=== PATIENT | male | born 1985 | race Caucasian/White ===

== ENCOUNTER 2025-02-13 00:21 | Emergency (ER) | payer OTHER ==
[2025-02-13 00:33] VITALS: RESP 18; TEMP 97.9
--- NOTE | 2025-02-13 02:33 | US ---
EXAM: US Scrotum CLINICAL HISTORY: US Reason: scrotal swelling TECHNIQUE: Real-time ultrasound of the scrotum with color Doppler and image documentation. COMPARISON: No relevant prior studies available. FINDINGS: Right testicle: The right testicle measures 3.2 x 2.7 x 3.9 cm, 17.8 mL. No torsion. Left testicle: The left testicle measures 4 x 2.6 x 2.7 cm, 14.7 mL. No torsion. Epididymides: The right epididymal head measures 1 x 1.1 x 1.1 cm. The left epididymal head measures 9 x 8 x 7 mL. Scrotum: Unremarkable. No hydrocele or varicocele. Soft tissues: There is skin thickening of the scrotum measuring up to 2.5 cm thick. No abscess or subcutaneous emphysema is identified. IMPRESSION: 1. There is skin thickening of the scrotum measuring up to 2.5 cm thick. No abscess or subcutaneous emphysema is identified. 2. No evidence of torsion.
[2025-02-13 02:43] VITALS: BP 150/86; PULSE 100
--- NOTE | 2025-02-13 03:27 | ED ---
General Adult HPI - General Chief complaint: Urogenital Stated complaint: Testicles are swollen, pain in head Time Seen by Provider: 02/13/25 00:46 Source: patient Mode of arrival: ambulatory Limitations: no limitations - History of Present Illness Initial comments: This patient is a 39-year-old man who presents evaluation of swelling to the scrotum. The patient states that this has been going on for some time now. He states he became concerned because he is starting to date a woman and is alarmed at the degree of swelling in his scrotum. He is denying guy testicular pain. No dysuria or urethral discharge. No fever or chills. No change in urination or bowel movements. Patient is also complaining of headache he is not able to characterize the headache well. He does state that it is one of the worst headaches that he has had. Patient does also describe what sounds like some delusional thought content with some paranoia evident. He denies depressed mood or suicidal ideation. -: month(s) Radiation: non-radiation Severity scale (1-10): 0 Quality: dull Consistency: constant Improves with: none Worsens with: none Associated Symptoms: denies other symptoms Treatments Prior to Arrival: none - Related Data Home Medications Medication Instructions Recorded Confirmed Gabapentin [Neurontin] 800 mg PO QID 02/17/25 02/17/25 buprenorphine HCL [Subutex] 8 mg SL BID 02/17/25 02/17/25 Previous Rx's Medication Instructions Recorded Citalopram Hydrobromide [CeleXA] 10 mg PO DAILY 30 Days #30 tab 02/21/25 Nicotine 14Mg/24Hr Patch [Habitrol] 1 patch TRANSDERM DAILY #0 patch 02/21/25 Paliperidone [Invega] 6 mg PO HS 30 Days #30 tab 02/21/25 Allergies Allergy/AdvReac Type Severity Reaction Status Date / Time No Known Allergies Allergy Verified 02/17/25 14:48 Review of Systems ROS Statement: Those systems with pertinent positive or pertinent negative responses have been documented in the HPI. ROS Other: All systems not noted in ROS Statement are negative. Constitutional: Denies: fever, chills, weakness Eyes: Denies: eye pain, vision change ENT: Denies: ear pain, hearing loss Respiratory: Denies: cough, dyspnea Cardiovascular: Denies: chest pain, palpitations, syncope Gastrointestinal: Denies: abdominal pain, nausea, vomiting, diarrhea, constipation Genitourinary: Reports: other (Scrotal swelling). Denies: urgency, dysuria, frequency, testicular pain Musculoskeletal: Denies: back pain, arthralgia Skin: Denies: rash Neurological: Reports: headache, confusion. Denies: weakness, numbness Psychiatric: Reports: anxiety. Denies: homicidal thoughts, suicidal thoughts Past Medical History Past Medical History: No Reported History History of Any Multi-Drug Resistant Organisms: None Reported Past Surgical History: Cholecystectomy Past Psychological History: Anxiety, Depression Smoking Status: Vaper Past Alcohol Use History: None Reported Past Drug Use History: None Reported General Exam Limitations: no limitations General appearance: alert, in no apparent distress Head exam: Present: atraumatic, normocephalic Eye exam: Present: normal appearance. Absent: scleral icterus, conjunctival injection ENT exam: Present: normal oropharynx Neck exam: Present: normal inspection, full ROM. Absent: tenderness Respiratory exam: Present: normal lung sounds bilaterally. Absent: respiratory distress, wheezes, rales, rhonchi, stridor, accessory muscle use Cardiovascular Exam: Present: regular rate, normal rhythm, normal heart sounds. Absent: systolic murmur, diastolic murmur, rubs, gallop GI/Abdominal exam: Present: soft. Absent: distended, tenderness, guarding, rebound, rigid, mass exam: Present: scrotal swelling, vertical testicular lie, other (There does appear to be scrotal edema. The testicles themselves seem normal in size with no tenderness.). Absent: testicular tenderness, urethral discharge Extremities exam: Present: normal inspection, normal capillary refill. Absent: pedal edema, calf tenderness Back exam: Present: normal inspection. Absent: CVA tenderness (R), CVA tenderness (L) Neurological exam: Present: alert, CN II-XII intact. Absent: motor sensory deficit Psychiatric exam: Present: anxious, manic. Absent: depressed, agitated, homicidal ideation, suicidal ideation Skin exam: Present: warm, dry, intact, normal color. Absent: rash Course Vital Signs 02/13/25 02/13/25 00:28 02:27 Temperature 97.9 F Pulse Rate 104 H 100 Respiratory 18 18 Rate Blood Pressure 151/97 150/86 O2 Sat by Pulse 97 97 Oximetry Medical Decision Making - Medical Decision Making The patient had CT scan of the brain that I interpreted as negative for acute intracranial hemorrhage, negative for mass effect or midline shift The patient had ultrasound of the scrotum that I interpreted as negative for evidence of torsion. Was pt. sent in by a medical professional or institution (, PA, TILE SETTER SUPERVISOR, urgent care, hospital, or [facility]...) When possible be specific @ -[No] Did you speak to anyone other than the patient for history (EMS, parent, family, police, friend...)? What history was obtained from this source @ -[No] Did you review nursing and triage notes (agree or disagree)? Why? @ -[I reviewed and agree with nursing and triage notes] Were old charts reviewed (outside hosp., previous admission, EMS record, old EKG, old radiological studies, urgent care reports/EKG's, [facility] records)? Report findings @ -[No old charts were reviewed] Differential Diagnosis (chest pain, altered mental status, abdominal pain women, abdominal pain men, vaginal bleeding, weakness, fever, dyspnea, syncope, headache, dizziness, GI bleed, back pain, seizure, CVA, palpatations, mental health, musculoskeletal)? @ -[Differential Mental Health Depression, anxiety, bipolar, psychosis, schizophrenia, borderline personality, situational depression, adjustment disorder, behavioral disorder, brain tumor, malingering, substance abuse, encephalopathy, medication reaction, dementia, hypothyroidism, degenerative neurologic disorder, lupus.... This is not meant to be all-inclusive list Differential Headache: Migraine, tension, cluster, carbon monoxide, central venous thrombosis, pension karma temporal arteritis, acute closure glaucoma, intercranial hemorrhage, mastoiditis, sinusitis, head injury, this is not meant to be an all-inclusive list. Differential Abdominal Pain Men: Appendicitis, cholecystitis, diverticulosis, ischemic bowel, pancreatitis, hepatitis, UTI, gastroenteritis, AAA, incarcerated hernia, bowel obstruction, constipation, inflammatory bowel, hepatitis, peptic ulcer disease, splenic infarction, perforated viscus, testicular torsion, this is not meant to be an all-inclusive list EKG interpreted by me (3pts min.). @ -[As above] X-rays interpreted by me (1pt min.). @ -[None done] CT interpreted by me (1pt min.). @ -[I interpreted as above U/S interpreted by me (1pt. min.). @ -[I interpreted as above What testing was considered but not performed or refused? (CT, X-rays, U/S, labs)? Why? @ -[None] What meds were considered but not given or refused? Why? @ -[None] Did you discuss the management of the patient with other professionals (professionals i.e. , PA, TILE SETTER SUPERVISOR, lab, RT, psych nurse, marriage and family social worker, information technology professor, teacher, deputy probation officer, case preparer and liner)? Give summary @ -[No] Was smoking cessation discussed for >3mins.? @ -[No] Was critical care preformed (if so, how long)? @ -[No] Were there social determinants of health that impacted care today? How? (Homelessness, low income, unemployed, alcoholism, drug addiction, transportation, low edu. Level, literacy, decrease access to med. care, care home, rehab)? @ -[No] Was there de-escalation of care discussed even if they declined (Discuss DNR or withdrawal of care, Hospice)? DNR status @ -[No] What co-morbidities impacted this encounter? (DM, HTN, Smoking, COPD, CAD, Cancer, CVA, ARF, Chemo, Hep., AIDS, mental health diagnosis, sleep apnea, morbid obesity)? @ -[None] Was patient admitted / discharged? Hospital course, mention meds given and route, prescriptions, significant lab abnormalities, going to OR and other pertinent info. @ -Patient is a 39-year-old man here with multiple complaints. In relation to the scrotal edema. There does not appear to be any evidence of torsion. The patient also is not manifesting discharge or tenderness which would be consistent with STI. The patient does have edema of the scrotum and we will have him follow with urology in relation to this problem. In relation to the headache. CT scan is obtained as the patient is not a fully reliable exam given the underlying mental health issue. There is no evidence of subarachnoid hemorrhage. No evidence of mass effect. I did offer to have the patient seen by EPS in relation to some of the delusional thought content but the patient is declining. He is not describing any suicidal or homicidal ideation no frankly admittable delusions. Recommended follow-up as outpatient Undiagnosed new problem with uncertain prognosis? @ -[No] Drug Therapy requiring intensive monitoring for toxicity (Heparin, Nitro, Insulin, Cardizem)? @ -[No] Were any procedures done? @ -[No] Diagnosis/symptom? @ -[default] Acute, or Chronic, or Acute on Chronic? @ -[Chronic scrotal edema Acute headache Mild psychosis Uncomplicated (without systemic symptoms) or Complicated (systemic symptoms)? @ -[Uncomplicated Side effects of treatment? @ -[No] Exacerbation, Progression, or Severe Exacerbation? @ -[No] Poses a threat to life or bodily function? How? (Chest pain, [place], [place], pneumonia, PE, COPD, DKA, ARF, appy, cholecystitis, CVA, Diverticulitis, Homicidal, Suicidal, threat to staff... and all critical care pts) @ -[No] All treatments are based on ideal body weight as in ED triage Disposition Clinical Impression: Edema of scrotum Disposition: HOME SELF-CARE Condition: Fair Instructions (If sedation given, give patient instructions): Testicle Pain (ED) Is patient prescribed a controlled substance at d/c from ED?: No Referrals: Nils Acuna MD [Primary Care Provider] - 1-2 days Blake Jackson MD [STAFF PHYSICIAN] - 1-2 days
--- NOTE | 2025-02-13 03:33 | CT ---
EXAM: CT Head Without Intravenous Contrast CLINICAL HISTORY: CT Reason: altered mental status TECHNIQUE: Axial computed tomography images of the head/brain without intravenous contrast. CTDI is 49.2 mGy and DLP is 1465.4 mGy-cm. This CT exam was performed using one or more of the following dose reduction techniques: automated exposure control, adjustment of the mA and/or kV according to patient size, and/or use of iterative reconstruction technique. COMPARISON: No relevant prior studies available. FINDINGS: Brain: Unremarkable. No hemorrhage. No significant white matter disease. No edema. Ventricles: Unremarkable. No ventriculomegaly. Bones/joints: Unremarkable. No acute fracture. Soft tissues: Unremarkable. Sinuses: Unremarkable as visualized. No acute sinusitis. Mastoid air cells: Unremarkable as visualized. No mastoid effusion. IMPRESSION: Normal head/brain CT.
[2025-02-13] MEDS: IBUPROFEN 400 MG TAB PO STA (04:12)
== END 2025-02-13 05:01 | disposition home or self-care (01) ==
LOC: EC 00:21
DX: N50.89 Other specified disorders of the male genital organs (principal); F17.290 Nicotine dependence, other tobacco product, uncomplicated
CPT/HCPCS: 70450; 76870; 82075; 93975; 99284

== ENCOUNTER 2025-02-17 11:40 | Inpatient (IN) | payer MEDICAID, OTHER ==
--- NOTE | 2025-02-17 12:39 | ED ---
General Adult HPI - General Chief complaint: Psychiatric Symptoms Stated complaint: Petition Time Seen by Provider: 02/17/25 11:46 Source: patient Mode of arrival: ambulatory Limitations: no limitations - History of Present Illness Initial comments: Dictation was produced using [employer] dictation software. please excuse any grammatical, word or spelling errors. Chief Complaint: 39 will discuss I has not seen Delmy has been seen here and [id number] male presents with psychiatric evaluation History of Present Illness: Patient patient 39-year-old male presents emergency department for psychiatric evaluation. Patient allegedly was behaving psychotically. Patient allegedly was at a boat yard and took another person's boat without permission came back. Patient has been saying multiple psychotic things according to EMS with paranoid behavior. Patient a poor historian due to mental status. The ROS documented in this emergency department record has been reviewed and confirmed by me. Those systems with pertinent positive or negative responses have been documented in the HPI. All other systems are other negative and/or noncontributory. - Related Data Home Medications Medication Instructions Recorded Confirmed Citalopram Hydrobromide [CeleXA] 10 mg PO DAILY 02/17/25 02/17/25 Gabapentin [Neurontin] 800 mg PO QID 02/17/25 02/17/25 LORazepam [Ativan] 0.5 mg PO TID PRN 02/17/25 02/17/25 Naloxone HCl [Narcan] 4 mg NASAL DIRECTED PRN 02/17/25 02/17/25 buprenorphine HCL [Subutex] 8 mg SL BID 02/17/25 02/17/25 hydrOXYzine HCL [Atarax] 10 mg PO DAILY 02/17/25 02/17/25 Allergies Allergy/AdvReac Type Severity Reaction Status Date / Time No Known Allergies Allergy Verified 02/17/25 14:48 Review of Systems ROS Statement: Those systems with pertinent positive or pertinent negative responses have been documented in the HPI. ROS Other: All systems not noted in ROS Statement are negative. Past Medical History Past Medical History: No Reported History History of Any Multi-Drug Resistant Organisms: None Reported Past Surgical History: Cholecystectomy Past Psychological History: Anxiety, Bipolar, Depression Smoking Status: Vaper Past Alcohol Use History: None Reported Past Drug Use History: None Reported - Past Family History Mother History Unknown: Yes General Exam - General Exam Comments Initial Comments: General: Well-appearing, nontoxic, no acute distress. Head: Normocephalic, atraumatic Eyes: PERRLA, EOMI ENT: Airway patent Chest: Nonlabored breathing Skin: No visual rash, normal skin tone Neuro: Alert and oriented 3 Musculoskeletal: No gross abnormalities Psych: Psychotic Limitations: no limitations Course Vital Signs 02/17/25 02/17/25 02/18/25 11:52 20:00 04:05 Temperature 98.3 F 97.9 F Pulse Rate 119 H 87 92 Respiratory 20 17 16 Rate Blood Pressure 116/81 100/64 103/65 O2 Sat by Pulse 97 97 95 Oximetry EKG Findings - EKG Comments: EKG Findings:: My EKG interpretation: Ventricular rate 90, sinus rhythm, CT 157, QRS 89, QTc 419. No CT prolongation, no QTC prolongation, no ST or T-wave changes noted. Overall, this EKG is unremarkable Procedures - Restraint - Face to Face Restraint Occurrence 1 Patient's Immediate Situation: Endangers self safety, Endangers others' safety, Endangers staff safety Patient's Reaction to the Intervention: Angry Need to Continue or Terminate Restraint or Seclusion: Continue Face to Face Eval of Restraint Date: 02/17/25 Face to Face Eval of Restraint Time: 12:50 Medical Decision Making - Medical Decision Making Was pt. sent in by a medical professional or institution (MARGARET Banks, SALES STORE CHECKER, urgent care, hospital, or chcf...) When possible be specific @ -No Did you speak to anyone other than the patient for history (EMS, parent, family, police, friend...)? What history was obtained from this source @ -No Did you review nursing and triage notes (agree or disagree)? Why? @ -I reviewed and agree with nursing and triage notes Were old charts reviewed (outside hosp., previous admission, EMS record, old EKG, old radiological studies, urgent care reports/EKG's, [facility] records)? Report findings @ -No old charts were reviewed Differential Diagnosis (chest pain, altered mental status, abdominal pain women, abdominal pain men, vaginal bleeding, musculoskeletal, weakness, fever, dyspnea, syncope, headache, dizziness, GI bleed, back pain, seizure, CVA, palpatations, mental health)? @ -Differential Mental Health: Depression, anxiety, bipolar, psychosis, schizophrenia, borderline personality, situational depression, adjustment disorder, behavioral disorder, brain tumor, malingering, substance abuse, encephalopathy, medication reaction, dementia, hypothyroidism, degenerative neurologic disorder, lupus.... This is not meant to be all-inclusive list EKG interpreted by me (3pts min.). @ -See above X-rays interpreted by me (1pt min.). @ -None done CT interpreted by me (1pt min.). @ -None done U/S interpreted by me (1pt. min.). @ -None done What testing was considered but not performed or refused? (CT, X-rays, U/S, labs)? Why? @ -None What meds were considered but not given or refused? Why? @ -None Was smoking cessation discussed for >3mins.? @ -No Were there social determinants of health that impacted care today? How? (Homelessness, low income, unemployed, alcoholism, drug addiction, transportation, low edu. Level, literacy, decrease access to med. care, penitentiary, rehab)? @ -No Was there de-escalation of care discussed even if they declined (Discuss DNR or withdrawal of care, Hospice)? DNR status @ -No What co-morbidities impacted this encounter? (DM, HTN, Smoking, COPD, CAD, Cancer, CVA, ARF, Chemo, Hep., AIDS, mental health diagnosis, sleep apnea, morbid obesity)? @ -None Was patient admitted / discharged? Hospital course, mention meds given and route, prescriptions, significant lab abnormalities, going to OR and other pertinent info. @ -39-year-old male presents with psychiatric evaluation. Patient psychotic on arrival. Vital signs stable. Labs unremarkable. Patient was given sedated medications. Will be medically clear when sedation wears off. Patient care signed out to Dr. Frank At 4:00 PM Patient abided by EPS and admitted to 3 W. Did you discuss the management of the patient with other professionals (nolvia urena i.e. , PA, SALES STORE CHECKER, lab, RT, psych nurse, group social worker, product controller, teacher, transit police officer, case mgr)? Give summary @ - Was critical care preformed (if so, how long)? @ -No Undiagnosed new problem with uncertain prognosis? @ -No Drug Therapy requiring intensive monitoring for toxicity (Heparin, Nitro, Insulin, Cardizem)? @ -No Were any procedures done? @ -No Diagnosis/symptom? Acute, or Chronic, or Acute on Chronic? Uncomplicated (without systemic symptoms) or Complicated (systemic symptoms)? @ -Acute psychosis Side effects of treatment? @ -No Exacerbation, Progression, or Severe Exacerbation? @ -No Poses a threat to life or bodily function? How? (Chest pain, USA, [place], pneumonia, PE, COPD, DKA, ARF, appy, cholecystitis, CVA, Diverticulitis, Homicidal, Suicidal, threat to staff... and all critical care pts) @ -yes - Lab Data Result diagrams: 02/17/25 13:20 02/17/25 13:20 Lab Results 02/17/25 02/17/25 02/17/25 Range/Units 13:20 13:20 13:20 WBC 5.89 (4.50-10.00) 10*3/uL RBC 4.28 L (4.40-5.60) 10*6/uL Hgb 12.6 L (13.0-17.0) g/dL Hct 35.8 L (39.6-50.0) % MCV 83.6 (80.0-97.0) fL MCH 29.4 (27.0-32.0) pg MCHC 35.2 (32.0-37.0) g/dL Plt Count 261 (140-440) 10*3/uL MPV 10.4 (9.5-12.2) fL Immature Gran % (Auto) 0.2 % Neutrophils % 61.6 % Lymphocytes % 21.6 % Monocytes % 12.7 % Eosinophils % 3.4 % Basophils % 0.5 % Immature Gran # 0.01 (0.00-0.04) 10*3/uL Neutrophils # 3.63 (1.80-7.70) 10*3/uL Lymphocytes # 1.27 (0.90-5.00) 10*3/uL Monocytes # 0.75 (0.20-1.00) 10*3/uL Eosinophils # 0.20 (0.04-0.35) 10*3/uL Basophils # 0.03 (0.00-0.10) 10*3/uL Sodium 138 (137-145) mmol/L Potassium 4.1 (3.5-5.1) mmol/L Chloride 102 (98-107) mmol/L Carbon Dioxide 26 (22-30) mmol/L Anion Gap 10 mmol/L BUN 26 H (9-20) mg/dL Creatinine 1.01 (0.66-1.25) mg/dL Est GFR (CKD-EPI)AfAm >90 (>60 ml/min/1.73 sqM) Est GFR (CKD-EPI)NonAf >90 (>60 ml/min/1.73 sqM) Glucose 92 (74-99) mg/dL Estimated Ave Glu mg/dL 111 mg/dL Hemoglobin A1c 5.5 (<=6.0) % Calcium 9.1 (8.4-10.2) mg/dL Total Bilirubin 1.0 (0.2-1.3) mg/dL AST 87 H (17-59) U/L ALT 45 (4-49) U/L Alkaline Phosphatase 88 (38-126) U/L Total Protein 7.2 (6.3-8.2) g/dL Albumin 4.6 (3.5-5.0) g/dL TSH (0.465-4.680) mIU/L Salicylates <1.0 mg/dL Acetaminophen <10.0 ug/mL Serum Alcohol <10 mg/dL Influenza Type A (PCR) (Not Detectd) Influenza Type B (PCR) (Not Detectd) RSV (PCR) (Not Detectd) SARS-CoV-2 (PCR) (Not Detectd) 02/17/25 02/18/25 Range/Units 13:20 01:45 WBC (4.50-10.00) 10*3/uL RBC (4.40-5.60) 10*6/uL Hgb (13.0-17.0) g/dL Hct (39.6-50.0) % MCV (80.0-97.0) fL MCH (27.0-32.0) pg MCHC (32.0-37.0) g/dL Plt Count (140-440) 10*3/uL MPV (9.5-12.2) fL Immature Gran % (Auto) % Neutrophils % % Lymphocytes % % Monocytes % % Eosinophils % % Basophils % % Immature Gran # (0.00-0.04) 10*3/uL Neutrophils # (1.80-7.70) 10*3/uL Lymphocytes # (0.90-5.00) 10*3/uL Monocytes # (0.20-1.00) 10*3/uL Eosinophils # (0.04-0.35) 10*3/uL Basophils # (0.00-0.10) 10*3/uL Sodium (137-145) mmol/L Potassium (3.5-5.1) mmol/L Chloride (98-107) mmol/L Carbon Dioxide (22-30) mmol/L Anion Gap mmol/L BUN (9-20) mg/dL Creatinine (0.66-1.25) mg/dL Est GFR (CKD-EPI)AfAm (>60 ml/min/1.73 sqM) Est GFR (CKD-EPI)NonAf (>60 ml/min/1.73 sqM) Glucose (74-99) mg/dL Estimated Ave Glu mg/dL mg/dL Hemoglobin A1c (<=6.0) % Calcium (8.4-10.2) mg/dL Total Bilirubin (0.2-1.3) mg/dL AST (17-59) U/L ALT (4-49) U/L Alkaline Phosphatase (38-126) U/L Total Protein (6.3-8.2) g/dL Albumin (3.5-5.0) g/dL TSH 2.390 (0.465-4.680) mIU/L Salicylates mg/dL Acetaminophen ug/mL Serum Alcohol mg/dL Influenza Type A (PCR) Not Detected (Not Detectd) Influenza Type B (PCR) Not Detected (Not Detectd) RSV (PCR) Not Detected (Not Detectd) SARS-CoV-2 (PCR) Not Detected (Not Detectd) Disposition Clinical Impression: Psychosis Disposition: TRANSFER TO PSYCH HOSP/UNIT
[2025-02-17] MEDS: diphenhydrAMINE 50 MG/ML 1 ML VIAL IM STA (12:52)
[2025-02-17] MEDS: LORazepam 1 MG/0.5 ML VIAL IM STA (12:52)
[2025-02-17] MEDS: HALOPERIDOL LACTATE 5 MG/ML 1 ML VIAL IM STA (12:53)
[2025-02-17 13:33] LABS: Basophils # (A) 0.03 10*3/uL (0.00-0.10); Basophils % (A) 0.5 %; Eosinophils # (A) 0.20 10*3/uL (0.04-0.35); Eosinophils % (A) 3.4 %; HCT 35.8 % (39.6-50.0); HGB 12.6 g/dL (13.0-17.0); Lymphocytes # (A) 1.27 10*3/uL (0.90-5.00); Lymphocytes % (A) 21.6 %; MCH 29.4 pg (27.0-32.0); MCHC 35.2 g/dL (32.0-37.0); MCV 83.6 fL (80.0-97.0); Monocytes # (A) 0.75 10*3/uL (0.20-1.00); Monocytes % (A) 12.7 %; Neutrophils # (A) 3.63 10*3/uL (1.80-7.70); Neutrophils % (A) 61.6 %; Platelet Count 261 10*3/uL (140-440); RBC 4.28 10*6/uL (4.40-5.60); RDW 12.0 % (11.5-14.5); WBC 5.89 10*3/uL (4.50-10.00)
[2025-02-17 13:42] LABS: ALT 45 U/L (4-49); AST 87 U/L (17-59); Acetaminophen <10.0 ug/mL; African American GFR (CKD) >90 (>60 ml/min/1.73 sqM); Albumin 4.6 g/dL (3.5-5.0); Alkaline Phosphatase 88 U/L (38-126); Anion Gap 10 mmol/L; Blood Urea Nitrogen 26 mg/dL (9-20); Calcium 9.1 mg/dL (8.4-10.2); Carbon Dioxide 26 mmol/L (22-30); Chloride 102 mmol/L (98-107); Glucose 92 mg/dL (74-99); Non-African American GFR(CKD) >90 (>60 ml/min/1.73 sqM); Potassium 4.1 mmol/L (3.5-5.1); Salicylate <1.0 mg/dL; Sodium 138 mmol/L (137-145); Total Protein 7.2 g/dL (6.3-8.2)
[2025-02-18 02:57] LABS: RSV Not Detected (Not Detectd)
[2025-02-18] MEDS ORDERED: MAGNESIUM HYDROXIDE 2,400 MG/30 ML CUP PO PRN (03:45)
[2025-02-18] MEDS ORDERED: ACETAMINOPHEN TAB 325 MG TAB PO PRN (03:45)
[2025-02-18] MEDS ORDERED: HALOPERIDOL LACTATE 5 MG/ML 1 ML VIAL IM PRN (03:45)
[2025-02-18] MEDS ORDERED: MAG HYDROX/AL HYDROX/SIMETH 355 ML BOTTLE PO PRN (03:45)
[2025-02-18 04:54] LABS: Bilirubin,Urine Negative (Negative); Blood,Urine Negative (Negative); Color,Urine Yellow; Glucose,Urine (UA) Negative (Negative); Ketones,Urine 2+ (Negative); Leukocyte Esterase,Urine Negative (Negative); Nitrite,Urine Negative (Negative); PH, Urine 6.0 (5.0-8.0); Protein,Urine Trace (Negative); Specific Gravity,Urine 1.036 (1.001-1.035); Urobilinogen,Urine 2.0 mg/dL (<2.0)
[2025-02-18 05:16] LABS: Barbiturate Screen,Urine Not Detected (NotDetected); Benzodiazepines Screen,Urine Detected (NotDetected); Opiate Screen,Urine Not Detected (NotDetected); Oxycodone Screen, Urine Not Detected (NotDetected); Phencyclidine Screen,Urine Not Detected (NotDetected); Tricyclic Antidepressant,Urine Not Detected (NotDetected); Urn Cannabinoid Scrn Not Detected (NotDetected)
[2025-02-18] MEDS: NICOTINE 14MG/24HR PATCH TRANSDERM SCH (08:59)
[2025-02-18] MEDS: IBUPROFEN 600 MG TAB PO PRN (08:59)
[2025-02-18] MEDS: LORazepam 1 MG TAB PO PRN (08:59)
[2025-02-18] MEDS: BUPRENORPHINE-NALOX 8-2 MG TAB 1 EACH TAB.SUBL SL SCH (10:56)
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
[2025-02-18] MEDS: GABAPENTIN 400 MG CAP PO SCH (17:56)
[2025-02-18] MEDS: PALIPERIDONE 6 MG TAB.ER.24 PO SCH (20:43)
[2025-02-18] MEDS ORDERED: NON FORMULARY DRUG (Buprenorphine Hcl [Subutex] 8 MG Tab.Subl) SL SCH (21:00)
--- NOTE | 2025-02-19 01:05 | CONS ---
CONSULTATION CHIEF COMPLAINT: Acute psychosis. HISTORY OF PRESENT ILLNESS: This 39-year-old gentleman apparently was brought to the emergency room after he was exhibiting from very bizarre and irrational behavior. He is admitted with an episode of acute psychosis. He has had mental health issues in the past. He was last seen in the office just recently. REVIEW OF SYSTEMS: Not obtainable. At the present time, he is asleep and fairly groggy and difficult to arouse. Past medical history, family history, personal and social histories, reveal he is not allergic to any medication. Lately, he has been on Celexa 10 mg once a day, Ativan 0.5 t.i.d. p.r.n., hydroxyzine 10 mg once a day, gabapentin 800 mg 4 times a day, and he has been on Suboxone. PHYSICAL EXAMINATION: VITAL SIGNS: Blood pressure 110/80 with a pulse 76, respirations of 26, and he is afebrile. GENERAL: He appeared to be well developed, well nourished. He is sleepy. HEAD, EARS, EYES, NOSE, MOUTH AND THROAT: Otherwise normal. CHEST: Clear. CARDIAC: Reveals sinus rhythm. ABDOMEN: Soft, nontender. EXTREMITIES: Normal. IMPRESSION: 1. Acute psychosis. 2. History of depression. 3. History of other mental health issues. RECOMMENDATIONS: None. Thank you respectfully. MMODL / IJN: [id number] /
[2025-02-19] MEDS: CITALOPRAM HYDROBROMIDE 10 MG TAB PO SCH (09:34)
--- NOTE | 2025-02-19 12:46 | P.PN ---
Progress Note - Text Progress Note Date: 02/19/25 Interval History: Patient was seen laying in bed and was directable and agreeable to speak with scientific technical writer in the room. He did receive as needed Haldol/Ativan yesterday for agitation. He was adherent with his Invega overnight, expressing no concerns overall today other than a blister that was recently popped on his left foot. Patient states that the pain in his left foot prevents him from walking and he was encouraged to take as needed Motrin or Tylenol for this. Patient states he is unaware as to why he is here however he plans on following up with outpatient once discharged. He states he plans on possibly returning with his friend upon discharge. At this time patient denies any suicidal or homicidal ideations, intent or plan. Patient denies any auditory, visual hallucinations and denies any paranoia or delusions. Patient denies any side effects from the medications and has been compliant with meds. Mental Status Exam: General Appearance: Patient appears to be stated age is alert, directable, and cooperative. Behavior: Patient is calmly laying without any agitated behavior. Speech: Patient's speech is fluent and nonpressured. Mood/Affect: Mood is improving mildly, affect is congruent and constricted. Suicidality/Homicidality: Patient denies having any suicidal or homicidal ideation intent or plan. Perceptions: Patient denies any visual hallucinations and denies any auditory hallucinations Though content/process: There is no evidence of any delusional thought content and thought process is linear and goal-directed. Memory and concentration: AOX3, grossly intact for the purposes of this session Judgment and insight: Improving mildly Assessment Psychosis, unspecified Rule out schizoaffective disorder bipolar type versus substance-induced psychosis Opiate use disorder in sustained remission Nicotine dependence Plan: -Patient continues to meet criteria for inpatient psychiatric admission for symptom stabilization and safety. Patient has not signed adult voluntary form and medication consent and was placed in patient's chart. -Medications: Continue Invega 6 mg at bedtime for psychosis, Celexa 10 mg daily for depression -When necessary Ativan and Haldol for agitation/aggression. -Labs: Reviewed -NRT - nicotine patch -SW on board for discharge planning. Encouraged the patient to participate in milieu. Anticipate discharge tentatively on Monday
[2025-02-20 09:37] VITALS: RESP 16
--- NOTE | 2025-02-20 12:38 | P.PN ---
Progress Note - Text Progress Note Date: 02/20/25 Interval History: Patient was seen laying in bed and was directable and agreeable to speak with commercial loan underwriter in the room. Patient deferred yesterday and he had no questions regarding this. Patient overall has been attending groups, reports sleeping and eating well. He is unsure if his friend will allow him to stay with them upon discharge so he will follow-up with this today and if not then he is on board with going to a halfway upon discharge. At this time patient denies any suicidal or homicidal ideations, intent or plan. Patient denies any auditory, visual hallucinations and denies any paranoia or delusions. Patient denies any side effects from the medications and has been compliant with meds. Mental Status Exam: General Appearance: Patient appears to be stated age is alert, directable, and cooperative. Behavior: Patient is calmly laying without any agitated behavior. Speech: Patient's speech is fluent and nonpressured. Mood/Affect: Mood is improving mildly, affect is congruent and blunted. Suicidality/Homicidality: Patient denies having any suicidal or homicidal ideation intent or plan. Perceptions: Patient denies any visual hallucinations and denies any auditory hallucinations Though content/process: There is no evidence of any delusional thought content and thought process is linear and goal-directed. Memory and concentration: AOX3, grossly intact for the purposes of this session Judgment and insight: Improving mildly Assessment Schizoaffective disorder, bipolar type Opioid use disorder, in sustained remission Nicotine dependence Plan: -Patient continues to meet criteria for inpatient psychiatric admission for symptom stabilization and safety. Patient has not signed adult voluntary form and medication consent and was placed in patient's chart. -Medications: Continue Invega 6 mg at bedtime for psychosis, Celexa 10 mg daily for depression -When necessary Ativan and Haldol for agitation/aggression. -Labs: Reviewed -NRT - nicotine patch -SW on board for discharge planning. Encouraged the patient to participate in milieu. Patient deferred yesterday. Anticipate discharge to halfway versus friend tomorrow
[2025-02-20 22:48] VITALS: TEMP 97.8
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
[2025-02-21 10:41] VITALS: BP 98/65; PULSE 92
== END 2025-02-21 14:49 | disposition home or self-care (01) | DRG 761 ==
LOC: EC 11:40 → 3MHU 02-18 03:43
PROVIDERS: ADMIT Psychiatry & Neurology Psychiatry; ATTEND Psychiatry & Neurology Psychiatry
DX: F25.0 Schizoaffective disorder, bipolar type (principal); F41.9 Anxiety disorder, unspecified; F11.21 Opioid dependence, in remission; F13.21 Sedative, hypnotic or anxiolytic dependence, in remission; Z71.51 Drug abuse counseling and surveillance of drug abuser; F17.200 Nicotine dependence, unspecified, uncomplicated; Z56.0 Unemployment, unspecified; Z59.00 Homelessness unspecified; Z79.899 Other long term (current) drug therapy; Z78.1 Physical restraint status; Z28.310 Unvaccinated for COVID-19; Z28.21 Immunization not carried out because of patient refusal; Z71.89 Other specified counseling
CPT/HCPCS: 36415; 80053; 80143; 80179; 80306; 80320; 81003; 83036; 84443; 85025; 87636; 93005; 96372; 99285